=== PATIENT | female | born 1985 | race Caucasian/White ===

== ENCOUNTER 2022-07-22 14:19 | Emergency (ER) | payer OTHER, SELFPAY ==
[2022-07-22 14:27] VITALS: BP 128/98; PULSE 76; RESP 15; TEMP 37; O2SAT 100
--- NOTE | 2022-07-22 14:30 | ED.GENADULT ---
HPI - General Adult General Chief complaint: Urogenital-Female Stated complaint: pain with urination\pelvic pain Time Seen by Provider: 07/22/22 14:30 History of Present Illness HPI narrative: The patient is a 36-year-old with history of hepatitis-C, distant history of intravenous drug abuse, depression, anxiety, prior section x2, history of Trichomonas but no other STDs. She is , TAB 1. Last menstrual period February 2022. The patient has had a five-month history of foul-smelling urine along with urinary frequency. She has had several episodes of urinary incontinence, most recently 4 days ago. Does have dysuria for the last week. This complain of suprapubic abdominal discomfort for the last 2 months, radiating to the back in the lower aspect. No urinary urgency. Vaginal discharge, for the last month. No vomiting; does have some nausea. No fevers or chills. No URI symptoms. no prior similar history. Related Data Home Medications Medication Instructions Recorded Confirmed alprazolam 0.25 mg tablet 0.25 mg PO TID PRN Anxiety 07/22/22 07/22/22 fluoxetine 40 mg capsule 40 mg PO DAILY 07/22/22 07/22/22 prazosin 5 mg capsule 10 mg PO HS 07/22/22 07/22/22 topiramate 100 mg tablet 100 mg PO DAILY 07/22/22 07/22/22 Allergies Allergy/AdvReac Type Severity Reaction Status Date / Time No Known Allergies Allergy Mild Unverified 07/22/22 14:48 Review of Systems Review of Systems: All systems reviewed & are unremarkable except as noted in HPI and below Constitutional: Constitutional: Reports as per HPI, Reports no additional constitutional complaints, Denies chills, Denies excessive sweating, Denies fatigue, Denies fever(s), Denies headache(s) and Denies weakness Eyes: Eyes: Reports as per HPI, Reports no additional eye complaints, Denies change in vision and Denies photophobia ENT: Reports system reviewed and no additional complaints, except as documented, Reports as per HPI, Denies dysphagia, Denies vertigo, Denies dizziness, Denies headache(s), Denies lip swelling, Denies nasal congestion, Denies sore throat, Denies throat swelling and Denies tongue swelling Cardiovascular: Cardiovascular: Reports as per HPI, Reports no additional cardiovascular complaints, Denies chest pain, Denies syncope, Denies rapid heart rate and Denies dyspnea Respiratory: Respiratory: Reports as per HPI, Reports no additional respiratory complaints, Denies chest congestion, Denies cough, Denies dyspnea and Denies wheezing Gastrointestinal: Gastrointestinal: Reports as per HPI, Reports no additional gastrointestinal complaints, Reports abdominal pain, Denies constipation, Denies dysphagia, Denies diarrhea, Reports nausea and Denies vomiting Genitourinary: Genitourinary: Reports as per HPI, Denies hematuria, Denies urinary frequency, Reports nocturia, Reports dysuria, Reports pelvic pain, Reports urinary incontinence, Denies urinary urgency and Reports vaginal discharge Musculoskeletal: Musculoskeletal: Reports no additional musculoskeletal complaints, Denies back pain, Denies myalgias, Denies arthralgias, Denies joint swelling and Denies numbness Integumentary/Breasts: Skin/Breast: Reports system reviewed and no additional complaints, except as docu, Denies pruritus, Denies erythema, Denies rash and Denies skin ulcer Neurologic: Reports system reviewed and no additional complaints, except as documented, Reports as per HPI, Denies confusion, Denies vertigo, Denies dizziness, Denies syncope, Denies headache(s), Denies focal weakness, Denies numbness and Denies weakness Psychiatric: Psychiatric: Reports as per HPI, Denies anxiety, Denies confusion, Denies depression, Denies homicidal ideation and Denies suicidal ideation Endocrine: Endocrine: Reports no additional endocrine complaints, Denies excessive sweating, Denies fatigue, Denies polydipsia and Denies polyuria Hematologic/Lymphatic: Hematologic/Lymphatic: Reports no additional hematologic/lymphatic c
[2022-07-22 14:43] VITALS: BP 128/98; PULSE 76; RESP 15; TEMP 37; O2SAT 100
[2022-07-22 15:09] LABS: Appearance Urine Cloudy (Clear); Bilirubin Urine Negative (Negative); Blood Urine Negative (Negative); Color Urine Light Yellow (Yellow); Glucose Urine UA Negative (Negative); Ketones Urine Negative (Negative); Leukocyte Esterase Ur Trace LEU/UL (Negative); Nitrate Urine Positive (Negative); Protein Urine Negative (Negative)
[2022-07-22 15:14] LABS: Add Urine Microscopic? YES; RBC Urine None seen /hpf (0-2)
[2022-07-22 15:15] LABS: Bacteria Urine 4+ /hpf; Squamous Epithelial Cell Urine Few /hpf (Few); WBC Urine 0-3 /hpf (0-3)
[2022-07-22 15:16] LABS: Amphetamine Screen Urine Negative (Negative); Barbiturate Screen Urine Negative (Negative); Benzodiazepines Screen Urine Negative (Negative); Cannabinoid Screen Urine Negative (Negative); Cocaine Screen Urine Negative (Negative); Methadone Screen Urine Negative (Negative); Opiate Screen Urine Negative (Negative); Phencyclidine Screen Urine Negative (Negative)
[2022-07-22 15:17] LABS: Pregnancy On Board Control Positive; Urine Pregnancy Test Negative
[2022-07-22 15:59] VITALS: BP 122/88; PULSE 72; RESP 16; TEMP 36.8; O2SAT 100
--- NOTE | 2022-07-24 15:03 | PC.NURSE ---
final urine culture report reviewed. >100,000 E. coli isolated. pt prescribed keflex and macrobid at discharge. this is appropriate tx per erp dr rangel. no change in plan of care.
--- NOTE | 2022-07-27 12:06 | PC.NURSE ---
FINAL RESULTS OF C TRACHOMATIS RNA NOT DETECTED AND N. GONORRHOEAE RNA NOT DETECTED. ATTEMPTED TO NOTIFY PT AT [phone], UNABLE TO LEAVE MESSAGE THE MAILBOX WAS FULL. NO ACTION NEEDED.
== END 2022-07-22 16:01 | disposition home or self-care (01) ==
PROVIDERS: Emergency Provider Emergency Medicine
DX: N39.0 Urinary tract infection, site not specified (principal); N76.0 Acute vaginitis; F41.9 Anxiety disorder, unspecified; F32.A Depression, unspecified; Z86.19 Personal history of other infectious and parasitic diseases
CPT/HCPCS: 80307; 81001; 81025; 87077; 87086; 87088; 87186; 87210; 87491; 87591; 99283